=== PATIENT | female | born 1980 | race Caucasian/White ===

== ENCOUNTER 2018-09-03 09:59 | Emergency (ER) | payer BC ==
[~2018-09-03] VITALS: Ht 157.5 cm; Wt 55.3 kg
[2018-09-03] MEDS ORDERED: Isovue-300 100ml vial INJ PRN (10:15)
[2018-09-03 10:38] LABS: APPEARANCE,URINE CLEAR; BILIRUBIN, URINE NEGATIVE (NEGATIVE); COLOR,URINE PALE YELLOW; GLUCOSE, URINE (UA) NEGATIVE (NEGATIVE); KETONES,URINE NEGATIVE (NEGATIVE); LEUKOCYTE ESTERASE ,URINE 1+ (NEGATIVE); NITRITE,URINE NEGATIVE (NEGATIVE); PH,URINE 6 (4.5-8.0); PROTEIN,URINE NEGATIVE (NEGATIVE); UROBILINOGEN,URINE NORMAL MG/DL (0.0-1.0)
[2018-09-03 10:39] VITALS: BP 124/86
[2018-09-03 10:39] LABS: BASOPHILS % (AUTO) 0.8 % (0.0-2.0); EOSINOPHILS % (AUTO) 0.6 % (0.0-3.0); HEMATOCRIT 42.6 % (37.0-47.0); HEMOGLOBIN 14.1 G/DL (12.0-16.0); LYMPHOCYTES % (AUTO) 18.1 % (20.0-45.0); MEAN CORPUSCULAR VOLUME 88 FL (80-99); MONOCYTES % (AUTO) 6.4 % (1.0-10.0); NEUTROPHILS % (AUTO) 74.2 % (45.0-75.0); PLATELET COUNT 224 K/UL (150-450); RED BLOOD COUNT 4.84 M/UL (4.20-5.40); RED CELL DISTRIBUTION WIDTH 11.2 % (11.6-14.8); WHITE BLOOD COUNT 6.6 K/UL (4.8-10.8)
[2018-09-03 10:47] LABS: ANION GAP 8 mmol/L (5-15); BLOOD UREA NITROGEN 11 mg/dL (7-18); CALCIUM 9.1 MG/DL (8.5-10.1); CARBON DIOXIDE 28 MMOL/L (21-32); CHLORIDE 103 MMOL/L (98-107); CREATININE 0.6 MG/DL (0.55-1.30); POTASSIUM 3.5 MMOL/L (3.5-5.1); SODIUM 139 MMOL/L (136-145)
[2018-09-03 10:54] LABS: ALANINE AMINOTRANSFERASE 19 U/L (12-78); ALKALINE PHOSPHATASE 38 U/L (46-116); ASPARTATE AMINO TRANSFERASE 11 U/L (15-37); BILIRUBIN,TOTAL 0.8 MG/DL (0.2-1.0)
--- NOTE | 2018-09-03 12:44 | Emergency Room Report ---
History of Present Illness General Chief Complaint: Abdominal Pain Source: Patient Present Illness HPI This patient complains of pain in her weight lower abdomen for the past 3 days. She did see her primary care physician who was concerned she may have appendicitis and sent her here to the emergency department for further evaluation. The patient states she's had pain in this location for the past 3 days. She denies fever or chills. She denies nausea or vomiting. She denies dysuria or hematuria. She states she is currently on her menses. She has no other complaints. Allergies: Coded Allergies: SULFA (SULFONAMIDE ANTIBIOTICS) (Verified Allergy, Unknown, 09/03/18) SULFAMETHOXAZOLE (Verified Allergy, Unknown, 09/03/18) TRIMETHOPRIM (Verified Allergy, Unknown, 09/03/18) Patient History Past Medical History: none, see triage record Social History: Denies: smoking, alcohol use, drug use Last Menstrual Period: 08/29/18 Reviewed Nursing Documentation: PMH: Agreed; PSxH: Agreed Nursing Documentation-PMH Past Medical History: No Stated History Review of Systems All Other Systems: negative except mentioned in HPI Physical Exam Vital Signs Date Time Temp Pulse Resp B/P (MAP) Pulse Ox O2 Delivery O2 Flow Rate FiO2 09/03/18 10:04 98.2 105 18 124/86 100 Room Air Sp02 EP Interpretation: reviewed, normal General Appearance: no apparent distress, alert, GCS 15, non-toxic Head: normocephalic, atraumatic Eyes: bilateral eye normal inspection, bilateral eye PERRL ENT: hearing grossly normal, normal pharynx, no angioedema, normal voice Neck: full range of motion, supple/symm/no masses Respiratory: chest non-tender, lungs clear, normal breath sounds, no respiratory distress, no retraction, no accessory muscle use, speaking full sentences Cardiovascular #1: regular rate, rhythm, no edema Gastrointestinal: normal bowel sounds, soft, non-distended, no guarding, no rebound, tenderness - TTP in the RLQ Rectal: deferred Genitourinary: no CVA tenderness, adnexa normal, ext genitalia/vag normal, other - No lesions noted, no cervicitis findings. No CMT. Musculoskeletal: back normal, gait/station normal, normal range of motion, non- tender Neurologic: alert, oriented x3, responsive, motor strength/tone normal, sensory intact, speech normal Psychiatric: judgement/insight normal, memory normal, mood/affect normal, no suicidal/homicidal ideation Skin: normal color, no rash, warm/dry, well hydrated Medical Decision Making Diagnostic Impression: Primary Impression: Enlarged cervix Additional Impressions: Abdominal pain Constipation ER Course This patient underwent evaluation for appendicitis. There is no signs of appendicitis on CT. The appendix was not visualized by the radiologist but he states there was no secondary findings of appendicitis. There was an incidental finding of an enlarged cervix. I did a pelvic exam on this patient and her cervix is enlarged but there were no obvious cervical lesions. The patient states that she underwent a Pap smear and pelvic exam by her primary sawmill hand less than 6 months ago and this was unremarkable. The patient had no cervical motion tenderness or abnormal discharge, therefore, I am not concerned for PID or STD. Further, the patient states that she is not at risk for this and that she is and monogamous with her . The patient made an appointment with her sawmill hand she was here in the emergency department to be evaluated for Pap smear. I did impress upon her the importance of very close follow-up with her [employer] specialist. She can indicated understanding and intention to do so. I will also treat the patient for constipation. She is also given very close return precautions and follow-up instructions. Please note that this Emergency Department Report was dictated using [employer] technology software, occasionally this can lead to erroneous entry secondary to interpretation by the dictation equipment. Laboratory Tests Test 09/03/18 10:20 White Blood Count 6.6 K/UL (4.8-10.8) Red Blood Count 4.84 M/UL (4.20-5.40) Hemoglobin 14.1 G/DL (12.0-16.0) Hematocrit 42.6 % (37.0-47.0) Mean Corpuscular Volume 88 FL (80-99) Mean Corpuscular Hemoglobin 29.2 PG (27.0-31.0) Mean Corpuscular Hemoglobin Concent 33.2 G/DL (32.0-36.0) Red Cell Distribution Width 11.2 % (11.6-14.8) L Platelet Count 224 K/UL (150-450) Mean Platelet Volume 9.0 FL (6.5-10.1) Neutrophils (%) (Auto) 74.2 % (45.0-75.0) Lymphocytes (%) (Auto) 18.1 % (20.0-45.0) L Monocytes (%) (Auto) 6.4 % (1.0-10.0) Eosinophils (%) (Auto) 0.6 % (0.0-3.0) Basophils (%) (Auto) 0.8 % (0.0-2.0) Urine Color Pale yellow Urine Appearance Clear Urine pH 6 (4.5-8.0) Urine Specific [place] 1.010 (1.005-1.035) Urine Protein Negative (NEGATIVE) Urine Glucose (UA) Negative (NEGATIVE) Urine Ketones Negative (NEGATIVE) Urine Blood 2+ (NEGATIVE) H Urine Nitrite Negative (NEGATIVE) Urine Bilirubin Negative (NEGATIVE) Urine Urobilinogen Normal MG/DL (0.0-1.0) Urine Leukocyte Esterase 1+ (NEGATIVE) H Urine RBC 2-4 /HPF (0 - 2) H Urine WBC 2-4 /HPF (0 - 2) Urine Squamous Epithelial Cells Few /LPF (NONE/OCC) Urine Bacteria Occasional /HPF (NONE) Urine HCG, Qualitative Negative (NEGATIVE) Sodium Level 139 MMOL/L (136-145) Potassium Level 3.5 MMOL/L (3.5-5.1) Chloride Level 103 MMOL/L (98-107) Carbon Dioxide Level 28 MMOL/L (21-32) Anion Gap 8 mmol/L (5-15) Blood Urea Nitrogen 11 mg/dL (7-18) Creatinine 0.6 MG/DL (0.55-1.30) Estimate Glomerular Filtration Rate > 60 mL/min (>60) Glucose Level 102 MG/DL (74-106) Calcium Level 9.1 MG/DL (8.5-10.1) Total Bilirubin 0.8 MG/DL (0.2-1.0) Aspartate Amino Transferase (AST) 11 U/L (15-37) L Alanine Aminotransferase (ALT) 19 U/L (12-78) Alkaline Phosphatase 38 U/L (46-116) L Total Protein 8.2 G/DL (6.4-8.2) Albumin 4.0 G/DL (3.4-5.0) Globulin 4.2 g/dL Albumin/Globulin Ratio 1.0 (1.0-2.7) CT/MRI/US Diagnostic Results CT/MRI/US Diagnostic Results : Imaging Test Ordered: CT abd/pelvis Impression Please see official report in electronic medical record. Enlarged cervix. Appendix not visualized. Uterine fibroids. Last Vital Signs Date Time Temp Pulse Resp B/P (MAP) Pulse Ox O2 Delivery O2 Flow Rate FiO2 09/03/18 10:39 101 18 Room Air 09/03/18 10:39 98.2 124/86 100 Status: improved Disposition: HOME, SELF-CARE Condition: Improved Scripts No Active Prescriptions or Reported Meds Referrals: NOT APPLICABLE THIS PATIENT,RE (PCP) Patient Instructions: Abdominal Pain, Adult Sarah Beth Lopez DO Sep 03, 2018 12:44
[2018-09-03 13:43] VITALS: BP 122/85
[2018-09-03 13:44] VITALS: BP 122/85
[2018-09-03] MEDS ORDERED: COLACE100 MG ORAL (13:45)
[2018-09-03] MEDS ORDERED: IBUPROFEN800 MG ORAL (13:45)
[2018-09-03] MEDS ORDERED: MIRALAX17 G2 ORAL (13:45)
--- NOTE | 2018-09-03 13:47 | Diagnostic Imaging Report ---
Indication: Abdominal pain Technique: Continuous helical transaxial imaging of the abdomen and pelvis was obtained from the lung bases to the pubic symphysis during intravenous contrast administration. Coronal 2-D reformats were also obtained. Study obtained in a Siemens sensation [address] Automatic Exposure Control was utilized. Total Dose length Product (DLP): 561.[address] Dose Index Volume (CTDIvol): 11.86 mGy Comparison: None Findings: The area of the cervix is enlarged and enhancing fairly heterogeneous in appearance for example in the sagittal image 28 or axial image 70. When should correlate for cervicitis or tumor. The uterus is also heterogeneous. There is suggestion of a fibroid along the ventral aspect of the uterine body with a mass that is about 3.5 x 2.8 cm. Second fibroid toward the left side noted measuring 4 cm. There is trace free fluid identified. There are small iliac nodes nonspecific. The appendix is not definitely seen. There are no secondary signs of acute appendicitis. The liver and spleen, pancreas, gallbladder and kidneys appear normal. No adrenal mass identified. No hydronephrosis identified. The lung bases are clear. IMPRESSION: Prominence of the cervix. The main considerations include cervicitis or infection versus tumor. Further clinical evaluation is recommended. Uterine fibroids Trace free fluid. No secondary signs of acute appendicitis. The CT scanner at [facility] is accredited by the [employer] and the scans are performed using dose optimization techniques as appropriate to a performed exam including Automatic Exposure control.
== END 2018-09-03 14:00 | disposition home or self-care (01) ==
LOC: EMR 10:36
DX: N88.9 Noninflammatory disorder of cervix uteri, unspecified (principal); R10.31 Right lower quadrant pain; K59.00 Constipation, unspecified; Z88.2 Allergy status to sulfonamides; D25.9 Leiomyoma of uterus, unspecified
CPT/HCPCS: 36415; 74177; 80053; 81003; 81025; 85025; 96360; 99284; Q9967